=== PATIENT | female | born 1950 | race Caucasian/White ===

== ENCOUNTER 2016-07-11 09:20 | Inpatient (IN) | payer MEDICARE, OTHER ==
[~2016-07-11] VITALS: Ht 162.6 cm; Wt 50.8 kg
[2016-07-11] MEDS ORDERED: COMBIVENT RESPIMAT INH (09:46)
[2016-07-11] MEDS ORDERED: PANT40TA4 PO (09:46)
[2016-07-11] MEDS ORDERED: OXYC5TAB3 PO (09:46)
[2016-07-11] MEDS ORDERED: OXYC10TA49 PO (09:46)
[2016-07-11] MEDS ORDERED: BACL20TA PO (09:46)
[2016-07-11 10:00] VITALS: BP 149/59
[2016-07-11] MEDS ORDERED: LISI-607 PO (10:42)
[2016-07-11] MEDS ORDERED: IPRATROPIUM/ALBUTEROL INHALER IH PRN (11:30)
[2016-07-11] MEDS ORDERED: LORAZEPAM 0.5 MG TABLET PO PRN (12:00)
[2016-07-11] MEDS ORDERED: MAGNESIUM HYDROXIDE 30 ML UDC PO PRN (12:00)
[2016-07-11] MEDS: MAG HYDROX/AL HYDROX/SIMETH 30 ML UDC PO PRN (12:19)
[2016-07-11] MEDS ORDERED: ALBUTEROL FS 2.5 MG/0.5 ML VIAL.NEB NEB PRN (13:00)
[2016-07-11] MEDS ORDERED: IPRATROPIUM NEB FS 0.5 MG/2.5 ML AMPUL.NEB NEB PRN (13:00)
[2016-07-11] MEDS: BACLOFEN (10 MG) 10 MG TABLET PO SCH ×3 (13:16→21:56)
[2016-07-11] MEDS: SERTRALINE HCL 25 MG TABLET PO SCH (14:00)
[2016-07-11] MEDS ORDERED: clonazePAM 0.5 MG TABLET PO PRN (14:00)
[2016-07-11] MEDS: oxyCODONE IR immediate release 5 MG CAPSULE PO PRN ×2 (15:08→21:59)
[2016-07-11 16:11] VITALS: BP 134/78
[2016-07-11] MEDS: clonazePAM 0.5 MG TABLET PO SCH (17:12)
[2016-07-11 20:00] VITALS: BP 130/75
[2016-07-11] MEDS: clonazePAM 0.5 MG TABLET PO PRN (23:04)
[2016-07-12] MEDS: TEMAZEPAM 7.5 MG CAPSULE PO PRN ×2 (01:19→23:51)
[2016-07-12 08:01] VITALS: BP 136/74
[2016-07-12 08:40] LABS: ALBUMIN 3.2 g/dL (3.4-5.0); BILIRUBIN,TOTAL 0.6 mg/dL (0.2-1.0); CALCIUM, SERUM 8.8 mg/dL (8.5-10.1); CREATININE 0.7 mg/dL (0.6-1.3); POTASSIUM 4.2 mmol/L (3.5-5.1); TOTAL PROTEIN, SERUM 6.2 g/dL (6.4-8.2)
[2016-07-12] MEDS: BACLOFEN (10 MG) 10 MG TABLET PO SCH ×4 (09:03→20:58)
[2016-07-12] MEDS: SERTRALINE HCL 25 MG TABLET PO SCH (09:03)
[2016-07-12] MEDS: PANTOPRAZOLE 40 MG TABLET.DR PO SCH (09:03)
[2016-07-12] MEDS: clonazePAM 0.5 MG TABLET PO SCH ×2 (09:04→18:09)
[2016-07-12] MEDS: oxyCODONE IR immediate release 5 MG CAPSULE PO PRN ×5 (09:11→23:01)
[2016-07-12] MEDS: clonazePAM 0.5 MG TABLET PO PRN (15:55)
[2016-07-12 16:12] VITALS: BP 138/68
[2016-07-12] MEDS: LISINOPRIL (5MG) 5 MG TABLET PO SCH (18:09)
[2016-07-12 19:49] VITALS: BP 150/92
[2016-07-12] MEDS: MUPIROCIN OINT 2% 22 GM TUBE SCH (20:58)
[2016-07-13] MEDS: oxyCODONE IR immediate release 5 MG CAPSULE PO PRN ×6 (03:44→21:31)
[2016-07-13] MEDS: clonazePAM 0.5 MG TABLET PO PRN ×2 (05:57→15:38)
[2016-07-13] MEDS: clonazePAM 0.5 MG TABLET PO SCH ×2 (07:49→17:27)
[2016-07-13] MEDS: SERTRALINE HCL 25 MG TABLET PO SCH (07:50)
[2016-07-13] MEDS: LISINOPRIL (5MG) 5 MG TABLET PO SCH (07:50)
[2016-07-13] MEDS: PANTOPRAZOLE 40 MG TABLET.DR PO SCH (07:50)
[2016-07-13] MEDS: BACLOFEN (10 MG) 10 MG TABLET PO SCH ×4 (07:54→21:30)
[2016-07-13] MEDS: MUPIROCIN OINT 2% 22 GM TUBE SCH ×2 (07:58→21:30)
[2016-07-13 08:00] VITALS: BP 124/70
[2016-07-13 16:09] VITALS: BP 107/54
[2016-07-13] MEDS: HYDROGEL DRESSING 90 GM TUBE TP SCH (17:26)
[2016-07-13 19:58] VITALS: BP 112/63
[2016-07-13] MEDS: TEMAZEPAM 7.5 MG CAPSULE PO PRN (22:45)
[2016-07-14] MEDS: oxyCODONE IR immediate release 5 MG CAPSULE PO PRN ×5 (02:21→22:53)
[2016-07-14] MEDS: clonazePAM 0.5 MG TABLET PO PRN ×3 (02:22→22:52)
[2016-07-14 08:00] VITALS: BP 130/66
[2016-07-14] MEDS: HYDROGEL DRESSING 90 GM TUBE TP SCH (08:58)
[2016-07-14] MEDS: MUPIROCIN OINT 2% 22 GM TUBE SCH ×2 (08:58→20:34)
[2016-07-14] MEDS: SERTRALINE HCL 25 MG TABLET PO SCH (08:59)
[2016-07-14] MEDS: clonazePAM 0.5 MG TABLET PO SCH ×2 (09:00→17:31)
[2016-07-14] MEDS: BACLOFEN (10 MG) 10 MG TABLET PO SCH ×4 (09:00→20:34)
[2016-07-14] MEDS: LISINOPRIL (5MG) 5 MG TABLET PO SCH (09:00)
[2016-07-14] MEDS: PANTOPRAZOLE 40 MG TABLET.DR PO SCH (09:00)
[2016-07-14 16:00] VITALS: BP 128/72
[2016-07-14 20:04] VITALS: BP 146/67
[2016-07-14] MEDS: TEMAZEPAM 7.5 MG CAPSULE PO PRN (21:16)
[2016-07-15] MEDS: oxyCODONE IR immediate release 5 MG CAPSULE PO PRN ×5 (02:57→21:54)
[2016-07-15] MEDS: clonazePAM 0.5 MG TABLET PO PRN ×3 (05:04→23:44)
[2016-07-15 08:00] VITALS: BP 107/53
[2016-07-15] MEDS: MUPIROCIN OINT 2% 22 GM TUBE SCH ×2 (08:07→21:55)
[2016-07-15] MEDS: clonazePAM 0.5 MG TABLET PO SCH ×2 (08:08→17:23)
[2016-07-15] MEDS: SERTRALINE HCL 25 MG TABLET PO SCH (08:08)
[2016-07-15] MEDS: BACLOFEN (10 MG) 10 MG TABLET PO SCH ×4 (08:08→21:55)
[2016-07-15] MEDS: PANTOPRAZOLE 40 MG TABLET.DR PO SCH (08:08)
[2016-07-15] MEDS: LISINOPRIL (5MG) 5 MG TABLET PO SCH (08:14)
[2016-07-15] MEDS: HYDROGEL DRESSING 90 GM TUBE TP SCH (08:21)
[2016-07-15 10:56] LABS: TRIGLYCERIDES 110 mg/dL (30-150)
[2016-07-15 10:57] LABS: CHOLESTEROL 153 mg/dL (<200); HDL CHOLESTEROL 57 mg/dL (40-60); LDL 75 mg/dL (0-99)
[2016-07-15] MEDS ORDERED: ALBUTEROL FS 2.5 MG/0.5 ML VIAL.NEB NEB PRN (11:00)
[2016-07-15 16:03] VITALS: BP 113/62
[2016-07-15] MEDS ORDERED: ALBUTEROL FS 2.5 MG/0.5 ML VIAL.NEB INH PRN (19:30)
[2016-07-15 20:04] VITALS: BP 116/53
[2016-07-15] MEDS: TEMAZEPAM 7.5 MG CAPSULE PO PRN (21:55)
[2016-07-16] MEDS: ALBUTEROL SULFATE 8 GM HFA.AER.AD IH PRN ×3 (00:24→14:09)
[2016-07-16] MEDS: oxyCODONE IR immediate release 5 MG CAPSULE PO PRN ×5 (02:30→20:36)
[2016-07-16] MEDS: clonazePAM 0.5 MG TABLET PO PRN ×3 (05:45→21:40)
[2016-07-16] MEDS: MUPIROCIN OINT 2% 22 GM TUBE SCH ×2 (08:45→20:38)
[2016-07-16] MEDS: SERTRALINE HCL 25 MG TABLET PO SCH (08:45)
[2016-07-16] MEDS: PANTOPRAZOLE 40 MG TABLET.DR PO SCH (08:46)
[2016-07-16] MEDS: BACLOFEN (10 MG) 10 MG TABLET PO SCH ×4 (08:46→20:36)
[2016-07-16] MEDS: clonazePAM 0.5 MG TABLET PO SCH ×2 (08:46→17:49)
[2016-07-16] MEDS: LISINOPRIL (5MG) 5 MG TABLET PO SCH (08:49)
[2016-07-16 08:56] VITALS: BP 103/61
[2016-07-16] MEDS: HYDROGEL DRESSING 90 GM TUBE TP SCH (09:34)
[2016-07-16 16:00] VITALS: BP 100/55
[2016-07-16 20:00] VITALS: BP 99/51
[2016-07-16] MEDS: TEMAZEPAM 7.5 MG CAPSULE PO PRN (22:49)
[2016-07-17] MEDS: oxyCODONE IR immediate release 5 MG CAPSULE PO PRN ×6 (01:14→21:41)
[2016-07-17] MEDS: clonazePAM 0.5 MG TABLET PO PRN ×2 (06:37→13:30)
[2016-07-17 08:00] VITALS: BP 106/50
[2016-07-17] MEDS: PANTOPRAZOLE 40 MG TABLET.DR PO SCH (08:26)
[2016-07-17] MEDS: clonazePAM 0.5 MG TABLET PO SCH ×2 (08:26→17:25)
[2016-07-17] MEDS: MUPIROCIN OINT 2% 22 GM TUBE SCH ×2 (08:26→20:50)
[2016-07-17] MEDS: SERTRALINE HCL 25 MG TABLET PO SCH (08:26)
[2016-07-17] MEDS: MAG HYDROX/AL HYDROX/SIMETH 30 ML UDC PO PRN (08:26)
[2016-07-17] MEDS: BACLOFEN (10 MG) 10 MG TABLET PO SCH ×4 (08:26→20:45)
[2016-07-17] MEDS: LISINOPRIL (5MG) 5 MG TABLET PO SCH (08:27)
[2016-07-17] MEDS: HYDROGEL DRESSING 90 GM TUBE TP SCH (08:31)
[2016-07-17 16:00] VITALS: BP 124/66
[2016-07-17 20:00] VITALS: BP 130/59
[2016-07-17] MEDS: TEMAZEPAM 7.5 MG CAPSULE PO PRN (21:13)
[2016-07-18] MEDS: clonazePAM 0.5 MG TABLET PO PRN ×4 (02:02→22:01)
[2016-07-18] MEDS: oxyCODONE IR immediate release 5 MG CAPSULE PO PRN ×5 (03:00→20:14)
[2016-07-18 08:00] VITALS: BP 122/65
[2016-07-18] MEDS: PANTOPRAZOLE 40 MG TABLET.DR PO SCH (08:12)
[2016-07-18] MEDS: BACLOFEN (10 MG) 10 MG TABLET PO SCH ×4 (08:12→20:55)
[2016-07-18] MEDS: LISINOPRIL (5MG) 5 MG TABLET PO SCH (08:12)
[2016-07-18] MEDS: clonazePAM 0.5 MG TABLET PO SCH ×2 (08:12→16:38)
[2016-07-18] MEDS: SERTRALINE HCL 25 MG TABLET PO SCH (08:12)
[2016-07-18] MEDS: HYDROGEL DRESSING 90 GM TUBE TP SCH (08:16)
[2016-07-18] MEDS: MUPIROCIN OINT 2% 22 GM TUBE SCH (08:17)
[2016-07-18 16:05] VITALS: BP 116/69
[2016-07-18 20:00] VITALS: BP 106/56
[2016-07-18] MEDS: TEMAZEPAM 7.5 MG CAPSULE PO PRN (23:07)
[2016-07-19] MEDS: oxyCODONE IR immediate release 5 MG CAPSULE PO PRN ×5 (01:34→21:34)
[2016-07-19] MEDS: clonazePAM 0.5 MG TABLET PO PRN ×3 (04:17→20:13)
[2016-07-19 08:00] VITALS: BP 108/55
[2016-07-19] MEDS: HYDROGEL DRESSING 90 GM TUBE TP SCH (09:00)
[2016-07-19] MEDS: clonazePAM 0.5 MG TABLET PO SCH ×2 (09:17→16:44)
[2016-07-19] MEDS: BACLOFEN (10 MG) 10 MG TABLET PO SCH ×4 (09:17→21:53)
[2016-07-19] MEDS: PANTOPRAZOLE 40 MG TABLET.DR PO SCH (09:18)
[2016-07-19] MEDS: SERTRALINE HCL 25 MG TABLET PO SCH (09:18)
[2016-07-19] MEDS: LISINOPRIL (5MG) 5 MG TABLET PO SCH (09:21)
[2016-07-19 16:00] VITALS: BP 110/66
[2016-07-19 19:57] VITALS: BP 131/80
[2016-07-19 23:22] VITALS: BP 139/65
[2016-07-19] MEDS: TEMAZEPAM 7.5 MG CAPSULE PO PRN (23:29)
[2016-07-20] MEDS: MAG HYDROX/AL HYDROX/SIMETH 30 ML UDC PO PRN (03:34)
[2016-07-20] MEDS: oxyCODONE IR immediate release 5 MG CAPSULE PO PRN ×2 (03:37→09:45)
[2016-07-20] MEDS: clonazePAM 0.5 MG TABLET PO PRN (06:14)
[2016-07-20 08:00] VITALS: BP 109/53
[2016-07-20 09:00] VITALS: BP 109/53
[2016-07-20] MEDS: BACLOFEN (10 MG) 10 MG TABLET PO SCH ×2 (09:00→13:00)
[2016-07-20] MEDS: clonazePAM 0.5 MG TABLET PO SCH (09:00)
[2016-07-20] MEDS: LISINOPRIL (5MG) 5 MG TABLET PO SCH (09:00)
[2016-07-20] MEDS: PANTOPRAZOLE 40 MG TABLET.DR PO SCH (09:28)
[2016-07-20] MEDS: SERTRALINE HCL 25 MG TABLET PO SCH (09:28)
[2016-07-20] MEDS: HYDROGEL DRESSING 90 GM TUBE TP SCH (09:52)
== END 2016-07-20 13:00 | DRG 885 ==
LOC: GPS 09:20
PROVIDERS: ADMIT Psychiatry & Neurology Psychiatry; ATTEND Internal Medicine
DX: F31.9 Bipolar disorder, unspecified (principal); F01.50 Vascular dementia, unspecified severity, without behavioral disturbance, psychotic disturbance, mood disturbance, and anxiety; F43.12 Post-traumatic stress disorder, chronic; G40.909 Epilepsy, unspecified, not intractable, without status epilepticus; I10 Essential (primary) hypertension; M19.90 Unspecified osteoarthritis, unspecified site; G89.29 Other chronic pain; E11.621 Type 2 diabetes mellitus with foot ulcer; L97.521 Non-pressure chronic ulcer of other part of left foot limited to breakdown of skin; M48.00 Spinal stenosis, site unspecified; F29 Unspecified psychosis not due to a substance or known physiological condition; Z73.6 Limitation of activities due to disability; F41.9 Anxiety disorder, unspecified; F19.90 Other psychoactive substance use, unspecified, uncomplicated; Z91.5 Personal history of self-harm
CPT/HCPCS: 36415; 80053-TC; 80061-TC; 87081-TC; A6248